=== PATIENT | male | born 1990 ===

== ENCOUNTER → 2017-06-01 | Outpatient (REF) | payer OTHER ==
[2017-06-01 21:53] LABS: % NORMAL FORMS 12 % (>=4); IMMOTILITY 31 %; NON PROGRESSIVE MOTILITY (c) 19 %; PROGRESSIVE MOTILITY (a) 50 % (>=32); SPERM# 79.1 M/Ejac (>=39); TOTAL MOTILITY 69 % (>=40); TOTAL PROGRESSIVE SPERM 39.8 M/Ejac.
[2017-06-01 21:54] LABS: TOTAL FUNCTIONAL 10.5 M/Ejac.
== END ==
LOC: M LAB REF 15:18
PROVIDERS: ATTEND Obstetrics & Gynecology
DX: N46.9 Male infertility, unspecified (principal)